=== PATIENT | male | born 1975 | race Caucasian/White ===

== ENCOUNTER 2021-12-24 14:15 | Emergency (ER) | payer OTHER, BC ==
[2021-12-24 14:29] VITALS: BP 130/85; PULSE 75
[2021-12-24] MEDS ORDERED: Bupivacaine 0.5% 10 ML SDV INJECT ONE (14:44)
[2021-12-24] MEDS ORDERED: Lidocaine 1% 10 ML MDV INJECT ONE (14:44)
[2021-12-24] MEDS ORDERED: Diphtheria,Pertussis(Acell),Tetanus Vaccine 0.5 ML Syringe IM ONE (14:45)
== END 2021-12-24 16:00 | disposition home or self-care (01) ==
LOC: JD.ED 14:15
DX: S61.211A Laceration without foreign body of left index finger without damage to nail, initial encounter (principal); Z72.0 Tobacco use; Z23 Encounter for immunization; W26.8XXA Contact with other sharp object(s), not elsewhere classified, initial encounter; Y99.0 Civilian activity done for income or pay
CPT/HCPCS: 12001; 73140; 90471; 90715; 99283; J3490

== ENCOUNTER 2022-01-03 11:57 | Emergency (ER) | payer OTHER, BC ==
[2022-01-03 12:05] VITALS: BP 139/89; PULSE 80
== END 2022-01-03 12:10 | disposition home or self-care (01) ==
LOC: JD.ED 11:57
DX: S61.211D Laceration without foreign body of left index finger without damage to nail, subsequent encounter (principal)
CPT/HCPCS: 99281